=== PATIENT | female | born 1985 | race Two or more races ===

== ENCOUNTER 2018-04-20 11:10 | Outpatient (CLI) | payer MEDICAID, OTHER ==
[~2018-04-20] VITALS: Ht 162.6 cm; Wt 99.1 kg
[~2018-04-20 11:10] MED LIST: IBUP-1222 PO
[2018-04-20 11:47] VITALS: BP 127/56
[2018-04-20] MEDS ORDERED: PREN1TAB10 PO (13:01)
== END 2018-04-20 13:24 | disposition home or self-care (01) ==
LOC: LDOP 11:10
PROVIDERS: ATTEND Obstetrics & Gynecology
DX: O42.92 Full-term premature rupture of membranes, unspecified as to length of time between rupture and onset of labor (principal); Z3A.40 40 weeks gestation of pregnancy
CPT/HCPCS: 59025; 76815; 84112; 99201; G0463